=== PATIENT | male | born 2000 | race African-American/Black ===

== ENCOUNTER 2023-08-14 03:56 | Emergency (ER) | payer BC ==
[~2023-08-14] VITALS: Ht 177.8 cm; Wt 63.5 kg
[2023-08-14 04:10] VITALS: BP 122/78; PULSE 96; RESP 18; TEMP 98.1; O2SAT 97
[2023-08-14] MEDS ORDERED: LIDOCAINE MPF 1% 5 ML ONE (05:04)
[2023-08-14 05:29] VITALS: BP 124/78; PULSE 92; RESP 18; TEMP 98.1; O2SAT 97
== END 2023-08-14 05:29 | disposition home or self-care (01) ==
LOC: MED 03:56
DX: S05.42XA Penetrating wound of orbit with or without foreign body, left eye, initial encounter (principal); W22.8XXA Striking against or struck by other objects, initial encounter; Y93.89 Activity, other specified; Y92.89 Other specified places as the place of occurrence of the external cause; Y99.8 Other external cause status
CPT/HCPCS: 12011; 99282; J2001